=== PATIENT | female | born 1970 | race Caucasian/White ===

== ENCOUNTER 2017-01-05 21:20 | Inpatient (IN) | payer OTHER ==
--- NOTE | ~2017-01-05 | PN ---
Unit #: [id number] #: [id number] Patient: VÍCTOR MANE [id number] [facility] [address] [place] [address] [id number] I MR#: [id number] NAME: VÍCTOR MANE ROOM: [facility] Age: 46 Sex: F Admission Date: 01/05/2017 : 1970 Attending Physician: Yahir Palacio M.D. Admitting Physician: Marcia Kwok PROGRESS NOTES DATE OF SERVICE: 01/09/2017 SUBJECTIVE Ms. Mane is a 46-year-old white female who was seen today and chart was reviewed, and case was discussed with the staff. She has been anxious, withdrawn, and rather seclusive to herself, and has been having some restless legs. Meanwhile, she has been polite, pleasant, and cooperative with treatment recommendation and has been taking the medication and tolerating them fairly well. MENTAL STATUS EXAMINATION Middle-aged white female who was casually dressed with fair personal hygiene, appears to be in no acute distress or discomfort. She was awake and alert with intact orientation. Her mood was anxious with a congruent affect. She denies any suicidal or homicidal ideation. Her insight and judgment remain significantly impaired. TREATMENT PLAN 1. We will continue on her current treatment protocol. We will monitor her response to medications and make further adjustments as needed. 2. We will continue to follow up. Dictated by... Marcia Kwok/chelsea TD: 01/09/2017 15:31 JOB #: [id number] JACKELIN PROGRESS NOTES Page 1 of 1 X Yahir Palacio MD PROGRESS NOTE
--- NOTE | ~2017-01-05 | PN ---
Unit #: [id number] #: [id number] Patient: VÍCTOR LEIGH [id number] [facility] [address] [place] [address] [id number] I MR#: [id number] NAME: VÍCTOR LEIGH ROOM: [facility] Age: 46 Sex: F Admission Date: 01/05/2017 : 1970 Attending Physician: Yahir Palacio M.D. Admitting Physician: Yahir Palacio M.D. Primary Care Physician: Primary Care Physician Niki DIEGO NOTES DATE 01/10/2017 DISCUSSION Ms. Leigh is a 46-year-old white female who was seen today and chart was reviewed and case was discussed with the staff. She has been anxious, withdrawn and pacing the hallways though she has been taking medications and tolerating them fairly well with no reported side effects. MENTAL STATUS EXAMINATION Middle-aged white female who was casually dressed with fair personal hygiene, appears to be in no acute distress or discomfort. She was awake and alert with intact orientation. Her mood was anxious with congruent affect. She denies any suicidal or homicidal ideations. Also, denies any auditory or visual hallucinations. Her insight and judgement remains slightly impaired. TREATMENT PLAN 1. We will continue her on her current medications and treatment protocol. We will monitor her response to the medication and make further adjustments as needed. 2. We will continue to follow up. Dictated by... Marcia Kwok/andrea TD: 01/11/2017 16:50 JOB #: [id number] Unit #: [id number] #: [id number] Patient: VÍCTOR LEIGH BIGG PROGRESS NOTES Page 1 of 1 X Yahir Palacio MD PROGRESS NOTE
--- NOTE | ~2017-01-05 | PN ---
Unit #: [id number] #: [id number] Patient: VÍCTOR MANE [id number] [facility] [address] [place] [address] [id number] I MR#: [id number] NAME: VÍCTOR MANE ROOM: [facility] Age: 46 Sex: F Admission Date: 01/05/2017 : 1970 Attending Physician: Yahir Palacio M.D. Admitting Physician: Yahir Palacio M.D. Primary Care Physician: Primary Care Physician Niki DIEGO NOTES DATE OF SERVICE 01/12/2017 DISCUSSION Ms. Mane is a 46-year-old white female who was seen today. Chart was reviewed and case was discussed with the staff. She has been anxious, withdrawn, and rather seclusive to herself. Meanwhile, she has been cooperative with treatment recommendations and has been taking the medications and tolerating them fairly well with no reported side effects. MENTAL STATUS EXAMINATION Middle-aged white female who is casually dressed with fair personal hygiene, appears to be in no acute distress or discomfort. The patient was awake and alert on interaction with intact orientation. Her mood is anxious with congruent affect. She denies any suicidal or homicidal ideations and also denies any auditory or visual hallucinations. Her insight and judgment remain slightly impaired. TREATMENT PLAN 1. We will continue her on her current medications and treatment protocol. We will monitor her response to the medications and make further adjustments as needed. 2. We will continue to follow up. Dictated by... Yahir Palacio M.D. IAA/bzg TD: 01/13/2017 08:25 JOB #: [id number] Unit #: [id number] #: [id number] Patient: VÍCTOR MANE BIGG PROGRESS NOTES Page 1 of 1 X Yahir Palacio MD PROGRESS NOTE
--- NOTE | ~2017-01-05 | PN ---
Unit #: [id number] #: [id number] Patient: VÍCTOR LEIGH [id number] [facility] [address] [place] [address] [id number] I MR#: [id number] NAME: VÍCTOR LEIGH ROOM: [facility] Age: 46 Sex: F Admission Date: 01/05/2017 : 1970 Attending Physician: Yahir Palacio M.D. Admitting Physician: Yahir Palacio M.D. Primary Care Physician: Primary Care Physician Niki DIEGO NOTES DATE OF SERVICE: 01/08/2017 SUBJECTIVE Ms. Leigh is a 46-year-old white female who was seen today and chart was reviewed and case was discussed with the staff. She has been anxious, withdrawn, though has not shown any agitation or irritability, and has been seclusive to herself with persistent depressive symptoms. Meanwhile, she also has been talking to me about having paranoia and some delusional behavior. She has not shown any agitation or aggression. MENTAL STATUS EXAMINATION Middle-aged white female who was casually dressed with fair personal hygiene, appears to be in no acute distress or discomfort. She was awake and alert with impaired attention and concentration. Her mood was anxious with a congruent affect. She denies any suicidal or homicidal ideation. Her thought processes were disorganized with some looseness of associations, paranoid ideations, and delusional behavior. Her insight and judgment remain significantly impaired. TREATMENT PLAN 1. We will continue her on her current medications and treatment protocol. We will monitor her response to the medications and make further adjustments as needed. 2. We will continue to follow up. Dictated by... Marcia Kwok/chelsea TD: 01/08/2017 08:13 JOB #: [id number] Unit #: [id number] #: [id number] Patient: VÍCTOR LEIGH BIGG DIEGO NOTES Page 1 of 1 X Yahir Palacio MD PROGRESS NOTE
--- NOTE | ~2017-01-05 | PA ---
Unit #: [id number] #: [id number] Patient: VÍCTOR MANE [id number] [facility] [address] [place] [address] [id number] I MR#: [id number] NAME: VÍCTOR MANE ROOM: [facility]125 Age: 46 Sex: F Admission Date: 01/05/2017 : 1970 Date of Assessment: 01/06/2017 Attending Physician: Yahir Palacio M.D. Admitting Physician: Yahir Palacio M.D. Primary Care Physician: Primary Care Physician No PSYCHIATRIC ASSESSMENT DATE OF SERVICE 01/06/2017. IDENTIFYING DATA Ms. Mane is a 46-year-old white female, who is a resident of [place], [place] and was self-referred to the hospital on a voluntary basis. CHIEF COMPLAINT "I just feel like I don't want to live anymore." HISTORY OF PRESENT ILLNESS Ms. Mane is a 46-year-old white female with history of mood disorder, who was self-referred to the hospital reporting feelings of hopelessness and suicidal ideations. "I'm having a lot of problem with my daughter and she took my grand babies away from me and just a lot of problems and I don't want to be here anymore." The patient reports that she has been experiencing suicidal thoughts just last night and reports history of suicide attempt via overdose on pills 20 years ago and that she wants to complete suicide by overdose at this time stating "I've a bunch of anxiety pills at home." The patient denies any current homicidal ideations, though she does report suicidal ideations, paranoid feeling, "I always have the sense of someone is watching me or following me." The patient reports that she is currently employed part-time at the [employer] in [place], [place] and lives alone but stated that she does not enjoy being alone and that she has not seen her grand children in 3 months and reports that daughter is involved in CPS, and her daughter believes the patient is the one who contacted CPS and this is the reason the patient's daughter will not allow the patient to see her children. The patient reports having some financial stressors and multiple medical problems and as such, was seen to be danger to self and recommendation for inpatient level of care for safety and stabilization was made. SUBSTANCE ABUSE HISTORY The patient has history of cannabis and cocaine abuse and said that she has used cocaine for 10 years, but has not used any in the last several years. She denies any ongoing substance abuse issues. PAST PSYCHIATRIC HISTORY The patient has not had any prior inpatient psychiatric hospitalizations, but she has been diagnosed and treated for mood disorder. Review of the medical records indicated that currently she is on Remeron as an antidepressant from her primary care physician. Unit #: [id number] #: [id number] Patient: VÍCTOR MANE PAST MEDICAL HISTORY The patient's medical history is significant for migraine headaches, gastroesophageal reflux disease. ALLERGIES Toradol, penicillin, and Imitrex. PERSONAL AND SOCIAL HISTORY A 46-year-old white female, who reports that she is single and employed and lives alone and has poor social support system. MENTAL STATUS EXAMINATION Middle-aged white female, who was casually dressed with fair personal hygiene, appears to be in no acute distress or discomfort. She was awake and alert on interaction with intact orientation to time, place, and person. Her mood was anxious and depressed with a congruent affect. Her speech was slow and restricted in content. She reports having suicidal ideations, but denies any homicidal ideations, and also denies any auditory or visual hallucinations. Her insight and judgment remain significantly impaired. DIAGNOSTIC IMPRESSION Psychiatric: Major depressive disorder, recurrent, moderate, without psychotic features. Medical: Migraine headaches, gastroesophageal reflux disease. Stressors: Moderate psychosocial stressors. TREATMENT PLAN 1. The patient has presented with history of mood disorder and has been decompensating and will need inpatient hospitalization for safety and stabilization. We will start her back on her home medications. We will adjust the medications and monitor response. 2. Supportive therapy was provided to the patient. 3. Safe, structured, and nourishing environment will be provided. ESTIMATED LENGTH OF STAY 5 to 7 days. ABILITY TO HELP SELF Limited. WILLINGNESS TO HELP SELF The patient appears to be willing to help self. STRENGTHS 1. Communicative. 2. Cooperative. PROBLEMS 1. Chronic dysphoric symptoms. 2. Poor social support system. DISCHARGE CRITERIA This will be contingent upon the patient's ability to show resolution of her depression and anxiety and her ability to stay safe to herself, particularly after discharge from the hospital. Unit #: [id number] #: [id number] Patient: VÍCTOR MANE Dictated by... Marcia Kwok/chelsea TD: 01/06/2017 07:17 JOB #: [id number] PSYCHIATRIC ASSESSMENT Page 1 of 1 X Yahir Palacio MD PSYCHIATRIC ASSESSMENT
--- NOTE | ~2017-01-05 | PN ---
Unit #: [id number] #: [id number] Patient: VÍCTOR MANE [id number] [facility] [address] [place] [address] [id number] I MR#: [id number] NAME: VÍCTOR MANE ROOM: [facility] Age: 46 Sex: F Admission Date: 01/05/2017 : 1970 Attending Physician: Yahir Palacio M.D. Admitting Physician: Marcia Kwok PROGRESS NOTES DATE OF SERVICE: 01/11/2017 SUBJECTIVE Ms. Mane is a 46-year-old white female with mood disorder, who was seen today and chart was reviewed and the case was discussed with the staff. She reports doing fairly well and has been showing improvement in depression and anxiety and has been calm and cooperative with the treatment recommendations as she has been taking the medications and tolerating them fairly well with no reported side effects. MENTAL STATUS EXAMINATION Middle-aged white female, who was casually dressed with fair personal hygiene and appears to be in no acute distress or discomfort. She was awake and alert on interaction with intact orientation. Her mood was anxious with a congruent affect. She denies any suicidal or homicidal ideation and also denies any auditory or visual hallucinations. Her insight and judgment remain slightly impaired. TREATMENT PLAN 1. We will continue her on her current medications and treatment protocol. We will monitor her response to the medications and make further adjustments as needed. 2. We will continue to follow up. Dictated by... Marcia Kwok/chelsea TD: 01/11/2017 12:37 JOB #: [id number] Unit #: [id number] #: [id number] Patient: VÍCTOR MANE BIGG PROGRESS NOTES Page 1 of 1 X Yahir Palacio MD PROGRESS NOTE
--- NOTE | ~2017-01-05 | PN ---
Unit #: [id number] #: [id number] Patient: VÍCTOR LEIGH [id number] [facility] [address] [place] [address] [id number] I MR#: [id number] NAME: VÍCTOR LEIGH ROOM: [facility] Age: 46 Sex: F Admission Date: 01/05/2017 : 1970 Attending Physician: Yahir Palacio M.D. Admitting Physician: Yahir Palacio M.D. Primary Care Physician: Primary Care Physician Niki DIEGO NOTES DATE OF SERVICE 01/08/2017 DISCUSSION Ms. Leigh is a 46-year-old white female with mood disorder and substance abuse who was seen today. Chart was reviewed and case was discussed with the staff. She has been anxious, withdrawn, and seclusive to herself, but still having difficulty sleeping at night despite being on Remeron and also has been reporting some paranoia, negative intrusive thoughts and depressive symptoms. MENTAL STATUS EXAMINATION Middle-aged white female who is casually dressed with fair personal hygiene, appears to be in no acute distress or discomfort. She was awake and alert on interaction with intact orientation. Her mood is anxious with congruent affect. She denies any suicidal or homicidal ideations and also denies any auditory or visual hallucinations. Her insight and judgment remain slightly impaired. TREATMENT PLAN 1. We will continue her on her current medications and treatment protocol. We will monitor her response and make further adjustments as needed. 2. We will continue to follow up. Dictated by... Marcia Kwok/eamon TD: 01/09/2017 08:53 JOB #: [id number] Unit #: [id number] #: [id number] Patient: VÍCTOR LEIGH PEASEAMUS PROGRESS NOTES Page 1 of 1 X Yahir Palacio MD PROGRESS NOTE
--- NOTE | ~2017-01-05 | HP ---
Unit #: [id number] #: [id number] Patient: LACEY MANE [id number] [place] [address] [id number] I MR#: [id number] NAME: LACEY MANE ROOM: [facility] Age: 46 Sex: F Admission Date: 01/05/2017 : 1970 Attending Physician: Yahir Palacio M.D. Admitting Physician: Yahir Palacio M.D. Primary Care Physician: Primary Care Physician No HISTORY AND PHYSICAL HISTORY OF PRESENT ILLNESS Lacey is a 46 year old admitted to [address] [place] [address] with depression and verbalizing wanting to hurt herself. PAST MEDICAL HISTORY 1. COPD. 2. Lupus. 3. Degenerative disc disease. 4. High blood pressure. 5. History of cervical dysplasia. 6. History of polysubstance abuse to include marijuana and cocaine. PAST SURGICAL HISTORY 1. Tubal ligation. 2. Hysterectomy. 3. Appendectomy. 4. Cervical conization. ALLERGIES Toradol, penicillin. SOCIAL HISTORY Smokes 1 pack per day. Drinks alcohol on occasion. Has a past history of illicit drug use. FAMILY HISTORY Medically noncontributory. REVIEW OF SYSTEMS CONSTITUTIONAL: No fever or chills. HEENT: Denies any sore throat, ear pain or runny nose. CARDIOVASCULAR: Denies chest pain, irregular heart rhythm or palpitations. CHEST: Denies shortness of breath or cough. No hemoptysis. GASTROINTESTINAL: Denies nausea, vomiting, diarrhea or chronic constipation. ENDOCRINE: Denies history of increased thirst or urination. No recent significant weight loss or gain. GENITOURINARY: Denies dysuria, frequency, or hematuria. SKIN: Denies any rashes. HEMATOLOGIC: Denies history of increased bleeding or bruising. MUSCULOSKELETAL: Denies any hot, swollen joints. No generalized muscle pain. NEUROLOGIC: Denies problems with vision or speech. No frequent, severe Unit #: [id number] #: [id number] Patient: LACEY MANE headaches. No numbness, tingling or weakness in any extremities. Denies loss of bladder or bowel control. CURRENT MEDICATIONS 1. Remeron 30 mg q.h.s. 2. Zofran p.r.n. 3. Protonix 40 mg daily. 4. Milk of Magnesia p.r.n. 5. Maalox p.r.n. 6. Tylenol p.r.n. PHYSICAL EXAMINATION GENERAL: Alert, well-nourished, in no apparent distress. VITAL SIGNS: Blood pressure 126/70, heart rate 76, respirations 16, temperature 98.6. WEIGHT: 112. HEIGHT: 4 feet 11 inches. SKIN: Warm and dry without rash or lesion. HEENT: Normocephalic. TMs not viewed. Oral and nasal passages clear. Conjunctivae clear. PERRLA. EOMs intact. NECK: Supple without lymphadenopathy or thyromegaly. HEART: Regular rate and rhythm without murmur. LUNGS: Clear. ABDOMEN: Soft, nontender. : Not done. EXTREMITIES: No evidence of cyanosis, clubbing or edema. Moves all without focal deficit. NEUROLOGICAL: Grossly within normal limits. Cranial Nerves: II: Visual wolff are intact. III, IV AND : Extraocular movements are intact. Pupils are equal, round and reactive to light. V: Facial sensation is grossly normal. VII: Facial movements and expression are normal. VIII: Auditory acuity grossly intact. IX, X: Uvula is midline. Phonation is normal. XI: Patient shrugs shoulders and turns head normally. XII: Tongue protrudes in the midline. Sensory and Motor Function: Sensory and motor sensation is grossly normal. Motor: moves all extremities well. Coordination: Gait is normal. Deep Tendon Reflexes: Intact. IMPRESSION Psychiatric admission. RECOMMENDATIONS PSYCHIATRIC: Per psychiatrist. MEDICAL: See no contraindications to participate in facility's activities. MEDICAL PROGNOSIS Good. MEDICAL CONDITION Stable. Dictated by... Maria A Guadalupe P.A.-C. for Brant Taylor M.D. Unit #: [id number] #: [id number] Patient: LACEY MANE CASE/wade TD: 01/06/2017 22:19 JOB #: [id number] HISTORY AND PHYSICAL Page 1 of 1 X Maria A Guadalupe HISTORY AND PHYSICAL
--- NOTE | ~2017-01-05 | DS ---
Unit #: [id number] #: [id number] Patient: VÍCTOR MANE [id number] [facility] [address] [place] [address] [id number] I MR#: [id number] NAME: VÍCTOR MANE ROOM: [facility] Age: 46 Sex: F Admission Date: 01/05/2017 : 1970 Discharge Date: 01/13/2017 Attending Physician: Yahir Palacio M.D. Primary Care Physician: Primary Care Physician No DISCHARGE SUMMARY IDENTIFYING DATA Ms. Mane is a 46-year-old white female, who is a resident of [place], [place] and was self-referred to the hospital on voluntary basis. DISCHARGE DIAGNOSES Psychiatric: Major depressive disorder, recurrent, moderate, without psychotic features. Medical: Migraine headaches, gastroesophageal reflux disease. Stressors: Moderate psychosocial stressors. HISTORY OF PRESENT ILLNESS Please see initial psychiatric evaluation for details. PAST PSYCHIATRIC HISTORY Please see initial psychiatric evaluation for details. PAST MEDICAL HISTORY Please see initial psychiatric evaluation for details. HOSPITAL COURSE The patient was admitted to the adult psychiatric unit at [facility] and was oriented to the hospital environment. Routine p.r.n. medications were initiated, and she was started back on her home medications and was closely monitored. She was taking the medications regularly and was tolerating them fairly well and was able to show a decent therapeutic response with improvement in depression and as such, it was decided that she will be discharged home and will continue treatment on an outpatient basis. DISCHARGE MEDICATIONS Remeron 30 mg at bedtime for depression, Seroquel 100 mg at bedtime for depression, Requip 0.5 mg at bedtime for restless legs. DISCHARGE CONDITION Stable. PROGNOSIS Fair. Dictated by... Yahir Palacio M.D. Unit #: [id number] #: [id number] Patient: VÍCTOR MANE IAA/modl TD: 01/13/2017 07:46 JOB #: [id number] DISCHARGE SUMMARY Page 1 of 1 X Yahir Palacio MD X DISCHARGE SUMMARY
[~2017-01-05 21:20] MED LIST: AMITRIPTYLINE H50 MG PO; FLEXERIL10 MG PO; HALDOL PO; TRAZODONE HCL100 MG PO; TYLENOL #3 PO
[2017-01-06 10:05] LABS: URINE APPEARANCE CLOUDY; URINE BILIRUBIN NEG (NEG); URINE BLOOD 1+ (NEG); URINE COLOR YELLOW; URINE GLUCOSE NEG (NEG); URINE KETONE NEG (NEG); URINE LEUKOCYTE ESTERASE NEG (NEG); URINE NITRATE NEG (NEG); URINE PH 6.5 (5-8); URINE PROTEIN NEG (NEG); URINE SPECIFIC GRAVITY 1.016 (1.003-1.035)
[2017-01-06 10:10] LABS: URBCS1 AUWI 0-2 /[HPF] (0-2); URINE BACTERIA AUWI NEG (NEGATIVE); URINE SQUAMOUS EPITHELIAL CELL NONE SEEN /[HPF]; UWBCS1 AUWI 0-2 (0-5)
[2017-01-06 10:16] LABS: AMPHETAMINE NEG (NEG); BARBITURATES NEG (NEG); BENZODIAZEPINES NEG (NEG); COCAINE NEG (NEG); MARIJUANA POS (NEG); OPIATES NEG (NEG); TRICYCLIC ANTIDEPRESSANTS NEG (NEG); U METHADONE NEG (NEG)
[2017-01-06 10:36] LABS: URINE GRANULAR CAST 0-2 /[HPF]
[2017-01-06 10:37] LABS: URINE CRYSTALS CALCIUM OXALATE /[HPF]
[2017-01-07 12:28] LABS: BASOPHIL# 0.1 X10e3 (0-0.3); BASOPHIL% 1.3 % (0-2.5); EOSINOPHIL# 0.4 X10e3 (0-0.7); EOSINOPHIL% 4.8 % (0.0-7.0); HEMOGLOBIN 13.6 gm/dL (12.0-16.0); LYMPHOCYTE# 2.7 X10e3 (1.0-3.5); LYMPHOCYTE% 33.9 % (17.0-45.0); MEAN CELL VOLUME 91.2 FL (83-96); MEAN CORPUSCULAR HEMOGLOBIN 29.5 PG (28-34); MEAN CORPUSCULAR HGB CONC 32.3 g/dL (30-36); MEAN PLATELET VOLUME 8.8 FL (6.5-11.5); MONOCYTE# 0.3 X10e3 (0-1.0); MONOCYTE% 3.8 % (3.0-12.0); NEUTROPHIL# 4.5 X10e3 (1.5-7.1); NEUTROPHIL% 56.2 % (40-75); PLATELET COUNT 294 X10e3 (140-420); RED CELL DISTRIBUTION WIDTH 13.1 % (11.0-15.5)
[2017-01-07 12:40] LABS: DIFF IND NO
[2017-01-07 12:44] LABS: ALBUMIN SERUM 3.9 g/dL (3.5-5.0); BILIRUBIN,TOTAL 0.5 mg/dL (0.2-2.0); BUN/CREATININE RATIO 24.28; CREATININE SERUM 0.7 mg/dL (0.6-1.4); GLOM FILT RATE Estimated 102.5 mL/min (>60); POTASSIUM 4.1 mmol/L (3.5-5.1); PROTEIN TOTAL SERUM 6.9 g/dL (6.0-8.3)
== END 2017-01-13 10:15 | disposition home or self-care (01) | DRG 885 ==
LOC: P1S 22:23 → P2L 01-07 20:02
PROVIDERS: Psychiatry & Neurology Psychiatry
DX: F33.1 Major depressive disorder, recurrent, moderate (principal); M32.9 Systemic lupus erythematosus, unspecified; J44.9 Chronic obstructive pulmonary disease, unspecified; I10 Essential (primary) hypertension; G43.909 Migraine, unspecified, not intractable, without status migrainosus; K21.9 Gastro-esophageal reflux disease without esophagitis; Z88.0 Allergy status to penicillin; F17.210 Nicotine dependence, cigarettes, uncomplicated; Z88.8 Allergy status to other drugs, medicaments and biological substances
CPT/HCPCS: 80053; 80307; 81003; 85025

== ENCOUNTER 2017-04-23 15:00 | Inpatient (IN) | payer OTHER ==
[~2017-04-23] VITALS: Ht 149.9 cm; Wt 49.4 kg
--- NOTE | ~2017-04-23 | PN ---
Unit #: [id number] #: [id number] Patient: VÍCTOR MANE [id number] [facility] [address] [place] [address] [id number] I MR#: [id number] NAME: VÍCTOR MANE. ROOM: P252 Age: 46 Sex: F Admission Date: 04/24/2017 : 1970 Attending Physician: Yahir Palacio M.D. Admitting Physician: Yahir Palacio M.D. Primary Care Physician: Primary Care Physician Niki DIEGO NOTES DATE OF SERVICE 04/27/2017 DISCUSSION Ms. Mane is a 46-year-old white female who was seen today. Chart was reviewed and case was discussed with the staff. She has been anxious, withdrawn, and rather seclusive to herself. Meanwhile, she has been cooperative with the treatment recommendations and has been taking the medications and tolerating them fairly well with no reported side effects. MENTAL STATUS EXAMINATION Middle-aged white female who is casually dressed with fair personal hygiene, appears to be in no acute distress or discomfort. She was awake and alert on interaction with intact orientation. Her mood is anxious with a congruent affect. Speech is slow and goal-directed. She denies any suicidal or homicidal ideations. Her insight and judgment remain slightly impaired. TREATMENT PLAN 1. We will continue her on her current medications and treatment protocol. We will monitor her response to the medications and make further adjustments as needed. 2. We will continue to follow up. Dictated by... Yahir Palacio M.D. IAA/bzg TD: 04/28/2017 07:48 JOB #: [id number] Unit #: [id number] #: [id number] Patient: VÍCTOR MANE PEASEAMUS PROGRESS NOTES Page 1 of 1 X Yahir Palacio MD PROGRESS NOTE
--- NOTE | ~2017-04-23 | CO ---
Unit #: [id number] #: [id number] Patient: LACEY MANE [id number] [facility] [address] [place] [address] [id number] I MR#: [id number] NAME: LACEY MANE ROOM: P252 Age: 46 Sex: F Admission Date: 04/24/2017 : 1970 Attending Physician: Yahir Palacio M.D. Primary Care Physician: Primary Care Physician No Consultation Date: 04/28/2017 CONSULTATION REPORT HISTORY OF PRESENT ILLNESS Lacey is a 46-year-old who has complained of intermittent vomiting over the past 48 hours. She was seen on 04/29/2017. She reports that her vomiting has resolved and that she is feeling much better. When asked if she wanted to advance her diet from a 6 tray to a regular diet. She was agreeable. She will let us know if she has any further problems. Dictated by... Maria A Guadalupe P.A.-C. for Marcia Heredia/chelsea TD: 04/29/2017 13:24 JOB #: [id number] CONSULTATION REPORT Page 1 of 1 X Maria A Guadalupe CONSULTATION REPORT
--- NOTE | ~2017-04-23 | PN ---
Unit #: [id number] #: [id number] Patient: VÍCTOR LEIGH [id number] [facility] [address] [place] [address] [id number] MR#: [id number] NAME: VÍCTOR LEIGH. ROOM: P252 Age: 46 Sex: F Admission Date: 04/24/2017 : 1970 Attending Physician: Yahir Palacio M.D. Admitting Physician: Yahir Palacio M.D. Primary Care Physician: Primary Care Physician Niki DIEGO NOTES DATE 04/26/2017 DISCUSSION Ms. Leigh is a 46-year-old white female who was seen today and chart was reviewed and case was discussed with the staff. She has been anxious, withdrawn and rather seclusive to herself. Meanwhile, she has been cooperative with treatment recommendations as she has been taking the medications and tolerating them fairly well with no reported side effects. MENTAL STATUS EXAMINATION Middle-aged white female who was casually dressed with fair personal hygiene, appears to be in no acute distress or discomfort. She was awake and alert on interaction with intact orientation. Her mood was anxious and depressed with congruent affect. Her speech was slow and restricted in content. She reports having suicidal ideation but denies any intent to (1) . Her insight and judgement remains significantly impaired. TREATMENT PLAN 1. We will continue her on her current medications and treatment protocol. We will monitor her response to the medication and make further adjustments as needed. 2. We will continue to follow up. Dictated by... Marcia Kwok/andrea TD: 04/27/2017 21:00 JOB #: [id number] Unit #: [id number] #: [id number] Patient: VÍCTOR LEIGH BIGG PROGRESS NOTES Page 1 of 1 X Yahir Palacio MD PROGRESS NOTE
--- NOTE | ~2017-04-23 | HP ---
Unit #: [id number] #: [id number] Patient: LACEY MANE [id number] [place] [address] [id number] MR#: [id number] NAME: LACEY MANE. ROOM: P263 Age: 46 Sex: F Admission Date: 04/24/2017 : 1970 Attending Physician: Yahir Palacio M.D. Admitting Physician: Yahir Palacio M.D. Primary Care Physician: Primary Care Physician No HISTORY AND PHYSICAL HISTORY OF PRESENT ILLNESS Lacey is a 46-year-old female admitted on 04/24/[address] [place] [address] for depression with a previous suicide attempt. She tried to overdose over the week. PAST MEDICAL HISTORY 1. COPD. 2. Interstitial lung disease. 3. Brain disease. She is unsure of the exact name. 4. Degenerative disk disease. 5. Leaking cardiac valves x3. PAST SURGICAL HISTORY 1. Hysterectomy. 2. Appendectomy. SOCIAL HISTORY Has a history of smoking 1 pack of cigarettes daily with her last use 1 week ago. Denies alcohol use. Does report occasional marijuana use. Her most recent use was over a year ago. She is currently single and living alone. FAMILY HISTORY Noncontributory. REVIEW OF SYSTEMS CONSTITUTIONAL: No fever or chills. HEENT: Denies any sore throat, ear pain or runny nose. CARDIOVASCULAR: Denies chest pain, irregular heart rhythm or palpitations. CHEST: Denies shortness of breath or cough. No hemoptysis. GASTROINTESTINAL: Denies nausea, vomiting, diarrhea or chronic constipation. ENDOCRINE: Denies history of increased thirst or urination. No recent significant weight loss or gain. GENITOURINARY: Denies dysuria, frequency, or hematuria. SKIN: Denies any rashes. HEMATOLOGIC: Denies history of increased bleeding or bruising. MUSCULOSKELETAL: Denies any hot, swollen joints. No generalized muscle pain. NEUROLOGIC: Denies problems with vision or speech. No frequent, severe headaches. No numbness, tingling or weakness in any extremities. Denies loss of bladder or bowel control. Unit #: [id number] #: [id number] Patient: LACEY MANE CURRENT MEDICATIONS Remeron, Seroquel, Requip, and Protonix. ALLERGIES To penicillin, Toradol, and Imitrex. PHYSICAL EXAMINATION GENERAL: Alert, oriented, no acute distress. VITAL SIGNS: Blood pressure 149/78, heart rate 108, temperature 98.6. HEIGHT: 4 feet 11. WEIGHT: 109 pounds. SKIN: Warm, dry. No rashes or lesions, track pearson, cuts, etc. HEENT: Normocephalic. TMs not viewed. Oronasal passages clear. Conjunctivae clear. PERRLA. EOM is intact. NECK: No lymphadenopathy or thyromegaly. HEART: Regular rate and rhythm. No murmur, gallop, or rub. LUNGS: Clear to auscultation bilaterally. ABDOMEN: Soft, nontender without palpable masses or hepatosplenomegaly. : Not assessed. EXTREMITIES: No evidence of cyanosis, clubbing, or edema. Moves all extremities independently without obvious deficit. NEUROLOGICAL: Grossly within normal limits. Cranial Nerves: II: Visual wolff are intact. III, IV AND : Extraocular movements are intact. Pupils are equal, round and reactive to light. V: Facial sensation is grossly normal. VII: Facial movements and expression are normal. VIII: Auditory acuity grossly intact. IX, X: Uvula is midline. Phonation is normal. XI: Patient shrugs shoulders and turns head normally. XII: Tongue protrudes in the midline. Sensory and Motor Function: Sensory and motor sensation is grossly normal. Motor: moves all extremities well. Coordination: Gait is normal. Deep Tendon Reflexes: Intact. IMPRESSION 1. Psychiatric admission. 2. Chronic obstructive pulmonary disease. 3. Interstitial lung disease. 4. Brain disease. 5. Degenerative disk disease. 6. Leaking cardiac valves. RECOMMENDATIONS PSYCHIATRIC: Per psychiatrist. MEDICAL: No contraindication to participate in this facility's activities. MEDICAL PROGNOSIS Good. MEDICAL CONDITION Stable. Dictated by... Sanjuanita Gardiner/eamon Unit #: [id number] #: [id number] Patient: LACEY MANE TD: 04/24/2017 13:59 JOB #: [id number] HISTORY AND PHYSICAL Page 1 of 1 X CATHIE NAIR APRN X HISTORY AND PHYSICAL
--- NOTE | ~2017-04-23 | DS ---
Unit #: [id number] #: [id number] Patient: VÍCTOR MANE [id number] [facility] [address] [place] [address] [id number] I MR#: [id number] NAME: VÍCTOR MANE. ROOM: P252 Age: 46 Sex: F Admission Date: 04/24/2017 : 1970 Discharge Date: 04/30/2017 Attending Physician: Yahir Palacio M.D. Primary Care Physician: Primary Care Physician No DISCHARGE SUMMARY IDENTIFYING DATA Ms. Rodriguez is a 46-year-old, , white female who is a resident of [place], [place] and is known to us from previous encounter, and was brought to the hospital by her daughter. DISCHARGE DIAGNOSES Psychiatric: Major depressive disorder, recurrent, moderate, without psychotic features. Medical: Need for chronic obstructive pulmonary disease, chronic heart and lung disease. Stressors: Mild psychosocial stressors. HISTORY OF PRESENT ILLNESS Please see initial psychiatric evaluation for details. PAST PSYCHIATRIC HISTORY Please see initial psychiatric evaluation for details. PAST MEDICAL HISTORY Please see initial psychiatric evaluation for details. HOSPITAL COURSE The patient was [facility] and was oriented to the hospital environment. Routine p.r.n. medications were initiated. She was started back on her home medications and medications were adjusted, and Remeron was increased to 30 mg at bedtime and Seroquel was also added and she was closely monitored. She was taking the medications regularly and was tolerating them fairly well and was able to show a decent therapeutic response with improvement in depression and anxiety, and was denying any suicidal ideations, intent, or plan. The patient was wanting to go home and was willing to continue treatment on an outpatient basis and as such, it was decided that she will be discharged home and will continue treatment on an outpatient basis. DISCHARGE MEDICATIONS Remeron 30 mg at bedtime for depression, Seroquel 100 mg at bedtime for depression, and Requip 0.5 mg at bedtime for restless legs syndrome. DISCHARGE CONDITION Stable. PROGNOSIS Fair. Unit #: [id number] #: [id number] Patient: VÍCTOR MANE Dictated by... Yahir Palacio M.D. IAA/modl TD: 04/30/2017 16:43 JOB #: [id number] DISCHARGE SUMMARY Page 1 of 1 X Yahir Palacio MD DISCHARGE SUMMARY
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
--- NOTE | ~2017-04-23 | PN ---
Unit #: [id number] #: [id number] Patient: VÍCTOR LEIGH [id number] [facility] [address] [place] [address] [id number] MR#: [id number] NAME: VÍCTOR LEIGH ROOM: P252 Age: 46 Sex: F Admission Date: 04/24/2017 : 1970 Attending Physician: Yahir Palacio M.D. Admitting Physician: Yahir Palacio M.D. Primary Care Physician: Primary Care Physician Niki PRIDE PROGRESS NOTES DATE OF SERVICE 04/25/2017 DISCUSSION Ms. Leigh is a 46-year-old white female with mood disorder who was seen today and chart was reviewed and case was discussed with the staff. She reports persistent depression and anxiety. Meanwhile, she has been compliant with treatment recommendations. She has been taking the medications and tolerating them fairly well with no reported side effects. MENTAL STATUS EXAMINATION Middle-aged white female who was casually dressed with fair personal hygiene, appears to be in no acute distress or discomfort. She was awake and alert on interaction with intact orientation. Her mood was anxious with congruent affect. Her speech was slow and goal-directed. She denies any suicidal or homicidal ideations. Her insight and judgement remains slightly impaired. TREATMENT PLAN 1. We will continue her on her current treatment protocol. We will monitor her response to the medication and make further adjustments as needed. 2. We will continue to follow up. Dictated by... Marcia Kwok/andrea TD: 04/27/2017 02:53 JOB #: [id number] [facility] PROGRESS NOTES Page 1 of 1 X Yahir Palacio MD PROGRESS NOTE
--- NOTE | ~2017-04-23 | PN ---
Unit #: [id number] #: [id number] Patient: VÍCTOR LEIGH [id number] [facility] [address] [place] [address] [id number] MR#: [id number] NAME: VÍCTOR LEIGH. ROOM: P252 Age: 46 Sex: F Admission Date: 04/24/2017 : 1970 Attending Physician: Yahir Palacio M.D. Admitting Physician: Yahir Palacio M.D. Primary Care Physician: Primary Care Physician Niki DIEGO NOTES DATE 04/28/2017 DISCUSSION Ms. Leigh is a 46-year-old white female who was seen today and chart was reviewed and case was discussed with the staff. She has been anxious, withdrawn and rather seclusive to herself. Meanwhile, she has been cooperative with treatment recommendations as she has been taking the medications and tolerating them fairly well with no reported side effects. MENTAL STATUS EXAMINATION Middle-aged white female who was casually dressed with fair personal hygiene, appears to be in no acute distress or discomfort. She was awake and alert on interaction with intact orientation. Her mood was anxious and depressed with congruent affect. Her speech was slow and goal-directed. She denies any suicidal or homicidal ideations. Also, denies any auditory or visual hallucinations. Her insight and judgement remains slightly impaired. TREATMENT PLAN 1. We will continue her on her current medications and treatment protocol. We will monitor her response to the medication and make further adjustments as needed. 2. We will continue to follow up. Dictated by... Marcia Kwok/andrea TD: 04/29/2017 00:46 JOB #: [id number] Unit #: [id number] #: [id number] Patient: VÍCTOR LEIGH BIGG PROGRESS NOTES Page 1 of 1 X Yahir Palacio MD PROGRESS NOTE
--- NOTE | ~2017-04-23 | PN ---
Unit #: [id number] #: [id number] Patient: VÍCTOR LEIGH [id number] [facility] [address] [place] [address] [id number] I MR#: [id number] NAME: VÍCTOR LEIGH. ROOM: P252 Age: 46 Sex: F Admission Date: 04/24/2017 : 1970 Attending Physician: Yahir Palacio M.D. Admitting Physician: Yahir Palacio M.D. Primary Care Physician: Primary Care Physician Niki PRIDE PROGRESS NOTES DATE 04/29/2017 DISCUSSION Ms. Leigh is a 46-year-old white female who was seen today and chart was reviewed and case was discussed with the staff. She has been anxious, withdrawn and rather seclusive to herself. Meanwhile, she has been cooperative with treatment recommendations and has been taking the medications and tolerating them fairly well with no reported side effects. MENTAL STATUS EXAMINATION Middle-aged white female who was casually dressed with fair personal hygiene and appears to be in no acute distress or discomfort. She was awake and alert on interaction with intact orientation. Her mood was anxious and depressed with congruent affect. Her speech is slow and goal-directed. She denies any suicidal or homicidal ideations. Her insight and judgement remains slightly impaired. TREATMENT PLAN 1. Will continue on current medications and treatment protocol. Will monitor her response to the medications and make further adjustments as needed. 2. Will continue to follow up. Dictated by... Marcia Kwok/wade TD: 04/29/2017 22:59 JOB #: [id number] Unit #: [id number] #: [id number] Patient: VÍCTOR LEIGH BIGG PROGRESS NOTES Page 1 of 1 X Yahir Palacio MD PROGRESS NOTE
[2017-04-26 10:07] LABS: BASOPHIL# 0.1 X10e3 (0-0.3); BASOPHIL% 1.1 % (0-2.5); EOSINOPHIL# 0.4 X10e3 (0-0.7); EOSINOPHIL% 3.8 % (0.0-7.0); HEMOGLOBIN 15.2 gm/dL (12.0-16.0); LYMPHOCYTE# 3.3 X10e3 (1.0-3.5); LYMPHOCYTE% 30.4 % (17.0-45.0); MEAN CELL VOLUME 91.4 FL (83-96); MEAN CORPUSCULAR HEMOGLOBIN 30.2 PG (28-34); MEAN CORPUSCULAR HGB CONC 33.1 g/dL (30-36); MEAN PLATELET VOLUME 8.3 FL (6.5-11.5); MONOCYTE# 0.5 X10e3 (0-1.0); NEUTROPHIL# 6.5 X10e3 (1.5-7.1); NEUTROPHIL% 59.7 % (40-75); PLATELET COUNT 334 X10e3 (140-420); RED BLOOD COUNT 5.04 X10e (3.90-5.30); RED CELL DISTRIBUTION WIDTH 13.5 % (11.0-15.5); WHITE BLOOD COUNT 10.9 X10e3 (4.0-10.5)
[2017-04-26 10:09] LABS: DIFF IND NO
[2017-04-26 10:40] LABS: ALBUMIN SERUM 4.4 g/dL (3.5-5.0); BILIRUBIN,TOTAL 0.4 mg/dL (0.2-2.0); BUN/CREATININE RATIO 28.57; CALCIUM SERUM 9.9 mg/dL (8.4-10.2); CREATININE SERUM 0.7 mg/dL (0.6-1.4); GLOM FILT RATE Estimated 102.5 mL/min (>60); POTASSIUM 4.7 mmol/L (3.5-5.1); PROTEIN TOTAL SERUM 7.7 g/dL (6.0-8.3)
[2017-04-27 12:55] LABS: URINE APPEARANCE CLOUDY; URINE BILIRUBIN NEG (NEG); URINE BLOOD NEG (NEG); URINE COLOR YELLOW; URINE GLUCOSE NEG (NEG); URINE KETONE NEG (NEG); URINE LEUKOCYTE ESTERASE NEG (NEG); URINE NITRATE NEG (NEG); URINE PH 8.5 (5-8); URINE PROTEIN NEG (NEG); URINE SPECIFIC GRAVITY 1.018 (1.003-1.035); URINE UROBILINOGEN 0.2 MG/DL (NEG)
[2017-04-27 13:51] LABS: AMPHETAMINE NEG (NEG); BARBITURATES NEG (NEG); BENZODIAZEPINES NEG (NEG); COCAINE NEG (NEG); MARIJUANA POS (NEG); OPIATES NEG (NEG); TRICYCLIC ANTIDEPRESSANTS POS (NEG); U METHADONE NEG (NEG)
== END 2017-04-30 11:00 | disposition home or self-care (01) | DRG 885 ==
LOC: P2L 04-24 05:13
PROVIDERS: Psychiatry & Neurology Psychiatry
DX: F33.1 Major depressive disorder, recurrent, moderate (principal); J84.9 Interstitial pulmonary disease, unspecified; R45.851 Suicidal ideations; M32.9 Systemic lupus erythematosus, unspecified; J44.9 Chronic obstructive pulmonary disease, unspecified; Z88.0 Allergy status to penicillin; Z88.8 Allergy status to other drugs, medicaments and biological substances; Z90.710 Acquired absence of both cervix and uterus; F17.210 Nicotine dependence, cigarettes, uncomplicated; R11.10 Vomiting, unspecified; I51.9 Heart disease, unspecified
CPT/HCPCS: 80053; 80307; 81003; 85025